=== PATIENT | male | born 1940 | race Caucasian/White ===

== ENCOUNTER 2018-09-30 13:48 | Outpatient (CLI) | payer MEDICARE, BC ==
--- NOTE | 2018-09-30 17:32 | CT ---
CT abdomen and pelvis with IV and oral contrast HISTORY: Colon mass. Pancreatic cyst. COMPARISON: 08/18/2018. FINDINGS: Mild atelectasis at the lung bases. Motion artifact obscures detail of the upper abdomen. C alcified granulomata of the spleen are consistent with healed granulomatous disease. Lobulated cyst at the pancreatic tail/body now measures 2.4 cm x 2.2 cm x 1.9 cm. Previously 2.5 cm x 2.5 cm x 2.2 cm. In the area of concern of the left colon on the previous study, no persistent thickening or mass are apparent. Scattered diverticula without adjacent inflammation. 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 IMPRESSION: No evidence of persistent left colon mass. No new abnormalities. Slight interval decrease in size of pancreatic cyst. Chronic-type findings are stable.
== END 2018-09-30 13:49 | disposition home or self-care (01) ==
LOC: SCSMRI 13:48 → SCSCT 13:49
PROVIDERS: ATTEND Physician Assistant Medical
DX: K85.00 Idiopathic acute pancreatitis without necrosis or infection (principal); R19.4 Change in bowel habit; R93.3 Abnormal findings on diagnostic imaging of other parts of digestive tract; K86.2 Cyst of pancreas
CPT/HCPCS: 74177; 82565

== ENCOUNTER 2019-02-22 19:04 | Emergency (ER) | payer MEDICARE, BC ==
[2019-02-22] MEDS ORDERED: Enoxaparin Sodium 80 MG/0.8 ML SYRINGE ONE (21:33)
[2019-02-22] MEDS ORDERED: Ketorolac Tromethamine 30 MG/ML VIAL ONE (21:33)
--- NOTE | 2019-02-22 22:05 | ULT ---
ULTRASOUND DOPPLER DUPLEX VENOUS BILATERAL LOWER EXTREMITIES: DATE: 02/22/2019 HISTORY: 78-year-old male with bilateral lower extremity pain and edema, and reportedly positive pulmonary thr omboembolism on outside CT. TECHNIQUE: Grayscale, color-flow, and spectral analysis, of the bilateral common femoral, profunda femoral, grea ter saphenous, femoral, popliteal, and posterior tibial, veins. FINDINGS: There is thrombus in the right common femoral vein extending to the junction with the greater sapheno us vein causing incomplete compressibility. There is blood flow around the clot. There is no DVT in the rest of the veins of the right lower extremity. There is no DVT in any of the veins of the left lower extremity. IMPRESSION: Positive for nonocclusive, acute deep venous thrombosis of the right common femoral vein.
== END 2019-02-22 22:55 | disposition home or self-care (01) ==
LOC: ERS 19:04
DX: I82.411 Acute embolism and thrombosis of right femoral vein (principal); I10 Essential (primary) hypertension; E78.00 Pure hypercholesterolemia, unspecified; Z79.899 Other long term (current) drug therapy; Z79.82 Long term (current) use of aspirin
CPT/HCPCS: 93970; 96372; J1650; J1885

== ENCOUNTER 2020-09-05 08:21 | Day surgery (SDC) | payer MEDICARE, BC ==
[2020-09-05] MEDS ORDERED: diphenhydrAMINE 25 MG CAP PO SCH (09:00)
[2020-09-05] MEDS ORDERED: Acetaminophen 500 MG TAB PO SCH (09:00)
[2020-09-05 15:39] VITALS: BP 117/58; TEMP 97.7
== END 2020-09-05 15:40 | disposition home or self-care (01) ==
LOC: ONC/OP 08:21
PROVIDERS: ATTEND Internal Medicine Hematology & Oncology
PROC: 30233N1 Transfusion of Nonautologous Red Blood Cells into Peripheral Vein, Percutaneous Approach (ICD-10-PCS; principal; 2020-09-05)
DX: D64.9 Anemia, unspecified (principal); D69.6 Thrombocytopenia, unspecified
CPT/HCPCS: 36430; 86850; 86900; 86901; P9016; Q0163

== ENCOUNTER 2020-09-21 10:55 | Day surgery (SDC) | payer MEDICARE, BC ==
[2020-09-21] MEDS ORDERED: diphenhydrAMINE 25 MG CAP ONE (11:18)
[2020-09-21] MEDS ORDERED: Acetaminophen 500 MG TAB ONE (11:18)
[2020-09-21 16:54] LABS: #Lymphocytes 1.1 thou/uL (1.20-3.40); #Monocytes 0.1 thou/uL (0.11-0.59); #Neutrophils 2.5 thou/uL (1.40-6.50); %Basophils 0.2 % (0.0-1.0); %Eosinophils 0.4 % (0.0-10.0); %Lymphocytes 28.8 % (21.0-51.0); %Monocytes 3.6 % (0.0-10.0); Mean Corpuscular HGB CONC 34.1 g/dL (32.0-36.0); Mean Corpuscular Hemoglobin 32.7 pg (27.0-31.0); Mean Corpuscular Volume 95.8 fL (78.0-98.0); Mean Platelet Volume 8.1 fL (7.4-10.4); Platelet Count 121 thou/uL (130-400); RBC Distribution Width 19.4 % (11.5-14.5); Red Blood Cell (RBC) Count 3.07 mill/uL (4.70-6.10); White Blood Cell (WBC) Count 3.7 thou/uL (4.8-10.8)
== END 2020-09-21 16:30 | disposition home or self-care (01) ==
LOC: SDC/OP 10:55
PROVIDERS: ATTEND Internal Medicine Hematology & Oncology
PROC: 30233N1 Transfusion of Nonautologous Red Blood Cells into Peripheral Vein, Percutaneous Approach (ICD-10-PCS; principal; 2020-09-21)
DX: D64.9 Anemia, unspecified (principal); D69.6 Thrombocytopenia, unspecified
CPT/HCPCS: 36430; 85025; 86850; 86900; 86901; 86920; P9016; 36415; 80053; 82248; 83615; 84100; 84550; Q0163

== ENCOUNTER 2020-10-02 08:31 | Day surgery (SDC) | payer MEDICARE, BC ==
[2020-10-02] MEDS ORDERED: Acetaminophen 500 MG TAB PO SCH (08:45)
[2020-10-02] MEDS ORDERED: diphenhydrAMINE 25 MG CAP PO SCH (08:45)
[2020-10-02] MEDS ORDERED: Sodium Chloride 0.9% 20 ML ONE (08:58)
[2020-10-02 13:14] VITALS: BP 116/63; TEMP 97.9
== END 2020-10-02 13:15 | disposition home or self-care (01) ==
LOC: ONC/OP 08:31
PROVIDERS: ATTEND Internal Medicine Hematology & Oncology
PROC: 30233N1 Transfusion of Nonautologous Red Blood Cells into Peripheral Vein, Percutaneous Approach (ICD-10-PCS; principal; 2020-10-02)
DX: D64.9 Anemia, unspecified (principal); D69.6 Thrombocytopenia, unspecified
CPT/HCPCS: 36430; 86850; 86900; 86901; P9016; Q0163

== ENCOUNTER 2020-11-23 13:19 | Day surgery (SDC) | payer MEDICARE, BC ==
[2020-11-23 16:36] VITALS: BMI 22.8
[2020-11-23] MEDS ORDERED: diphenhydrAMINE 25 MG CAP PO SCH (17:15)
[2020-11-23] MEDS ORDERED: Acetaminophen 500 MG TAB PO SCH (17:15)
[2020-11-24 02:03] VITALS: BP 145/69; TEMP 97.7
[2020-11-24 02:46] LABS: #Lymphocytes 1.2 thou/uL (1.20-3.40); #Monocytes 0.8 thou/uL (0.11-0.59); #Neutrophils 3.9 thou/uL (1.40-6.50); %Eosinophils 0.6 % (0.0-10.0); %Neutrophils 65.4 % (42.0-75.0); Mean Corpuscular HGB CONC 34.7 g/dL (32.0-36.0); Mean Corpuscular Hemoglobin 32.4 pg (27.0-31.0); Mean Corpuscular Volume 93.5 fL (78.0-98.0); Mean Platelet Volume 7.9 fL (7.4-10.4); Platelet Count 70 thou/uL (130-400); RBC Distribution Width 16.8 % (11.5-14.5); Red Blood Cell (RBC) Count 3.07 mill/uL (4.70-6.10); White Blood Cell (WBC) Count 5.9 thou/uL (4.8-10.8)
== END 2020-11-24 08:02 | disposition home or self-care (01) ==
LOC: SDC 13:19 → ONC 15:38 → SDC 11-24 08:02
PROVIDERS: ATTEND Internal Medicine Hematology & Oncology
PROC: 30233N1 Transfusion of Nonautologous Red Blood Cells into Peripheral Vein, Percutaneous Approach (ICD-10-PCS; principal; 2020-11-23)
PROC: 30233R1 Transfusion of Nonautologous Platelets into Peripheral Vein, Percutaneous Approach (ICD-10-PCS; 2020-11-23)
DX: D64.9 Anemia, unspecified (principal); D69.6 Thrombocytopenia, unspecified
CPT/HCPCS: 36430; 85025; 86850; 86900; 86901; 86920; P9016; P9035; 36415

== ENCOUNTER 2020-11-26 09:15 | Day surgery (SDC) | payer MEDICARE, BC ==
[2020-11-23 14:51] VITALS: BMI 23.8
[2020-11-26 09:10] LABS: INR-International Normal Ratio 1.1; Prothrombin Time 14.4 sec (12.0-14.7)
[2020-11-26 09:11] LABS: PTT 45.1 sec (22.9-36.1)
[2020-11-26] MEDS ORDERED: Sodium Bicarbonate 2.5 MEQ/5 ML VIAL ONE (10:34)
[2020-11-26] MEDS ORDERED: Midazolam HCl 2 mg/2 ml Vial ONE (10:34)
[2020-11-26] MEDS ORDERED: Fentanyl 100 MCG/2 ML VIAL ONE (10:34)
[2020-11-26 14:25] VITALS: BP 117/71; TEMP 97.8
== END 2020-11-26 13:10 | disposition home or self-care (01) ==
LOC: CT 09:15
PROVIDERS: ATTEND Internal Medicine Hematology & Oncology
PROC: 07DR3ZX Extraction of Iliac Bone Marrow, Percutaneous Approach, Diagnostic (ICD-10-PCS; principal; 2020-11-26)
DX: C61 Malignant neoplasm of prostate (principal); C79.52 Secondary malignant neoplasm of bone marrow; D69.6 Thrombocytopenia, unspecified; R29.810 Facial weakness; R41.82 Altered mental status, unspecified; I65.23 Occlusion and stenosis of bilateral carotid arteries; Z79.52 Long term (current) use of systemic steroids; Z79.899 Other long term (current) drug therapy
CPT/HCPCS: 20225; 36415; 77002; 85097; 85610; 85730; 88184; 88237; 88264; 88280; 88305; 88311; 88313; 88342; J2250; J3010

== ENCOUNTER 2020-12-20 12:02 | Inpatient (IN) | payer MEDICARE, BC ==
[2020-12-20 12:51] LABS: Hemoglobin 8.6 g/dL (14.0-18.0); Mean Platelet Volume 11.3 fL (7.4-10.4); Platelet Count 25 thou/uL (130-400); RBC Distribution Width 17.8 % (11.5-14.5); Red Blood Cell (RBC) Count 2.68 mill/uL (4.70-6.10); White Blood Cell (WBC) Count 12.7 thou/uL (4.8-10.8)
[2020-12-20 13:03] LABS: Anisocytosis SLIGHT = 6-15 cells (100X) (0-5/hpf); Band 7 % (5-11); Lymphocytes 10 % (21-51); MDiff Complete? YES; Monocytes 6 % (0-10); Neutrophil 76 % (42-75); Nucleated RBC 2 % (0); Platelet Morphology Comment Appears Decreased; Polychromasia SLIGHT = 2-3 cells (100X) (0-2/hpf)
[2020-12-20 13:10] LABS: ALT (SGPT) 45 U/L (8-55); AST (SGOT) 84 U/L (5-34); Albumin 3.4 g/dL (3.4-4.8); Alkaline Phosphatase 537 U/L (40-110); Anion Gap 13 mmol/L (10-20); BUN (Urea Nitrogen) 19 mg/dL (8.4-25.7); Bilirubin, Total 0.6 mg/dL (0.2-1.2); Calc. Creatinine Clearance 0 mL/min (70-130); Calcium 7.8 mg/dL (7.8-10.44); Carbon Dioxide 25 mmol/L (23-31); Chloride 100 mmol/L (98-107); Globulin 2.1 g/dL (2.4-3.5); Glucose 163 mg/dL (83-110); Potassium 3.9 mmol/L (3.5-5.1); Protein, Total 5.5 g/dL (5.8-8.1); Sodium 134 mmol/L (136-145)
[2020-12-20] MEDS ORDERED: hydrALAZINE 20 MG/ML VIAL SLOW IVP PRN (13:54)
[2020-12-20] MEDS ORDERED: Ondansetron PF 4 MG/2 ML Vial IVP PRN (13:54)
[2020-12-20] MEDS ORDERED: Promethazine HCl 25 MG/ML VIAL IM PRN (13:54)
[2020-12-20 14:48] LABS: INR-International Normal Ratio 1.1; PTT 36.4 sec (22.9-36.1); Prothrombin Time 14.2 sec (12.0-14.7)
[2020-12-20] MEDS ORDERED: HUMAN PROTHROMBIN COMPLX IV SCH (15:15)
[2020-12-20] MEDS ORDERED: ADMIXTURE FEE IV SCH (15:15)
[2020-12-20] MEDS: Acetaminophen 325 MG TAB PO SCH ×2 (18:07→21:20)
[2020-12-20 18:19] VITALS: BMI 22.1
[2020-12-20] MEDS ORDERED: Famotidine/PF 20 mg/2ml Vial SLOW IVP SCH (21:00)
[2020-12-20] MEDS: Senokot S 8.6-50 MG TAB PO SCH (21:21)
[2020-12-21] MEDS: Acetaminophen 325 MG TAB PO SCH ×3 (02:57→17:55)
[2020-12-21 05:25] LABS: INR-International Normal Ratio 1.1; PTT 33.5 sec (22.9-36.1)
[2020-12-21] MEDS ORDERED: Levothyroxine Sodium 50 MCG TAB PO SCH (06:00)
[2020-12-21 06:26] LABS: Anisocytosis SLIGHT = 6-15 cells (100X) (0-5/hpf); Band 23 % (5-11); Hemoglobin 6.6 g/dL (14.0-18.0); Lymphocytes 10 % (21-51); MDiff Complete? YES; Mean Corpuscular HGB CONC 33.3 g/dL (32.0-36.0); Mean Corpuscular Hemoglobin 31.1 pg (27.0-31.0); Mean Corpuscular Volume 93.5 fL (78.0-98.0); Mean Platelet Volume 7.8 fL (7.4-10.4); Metamyelocyte 3 % (0-0); Monocytes 4 % (0-10); Myelocyte 2 % (0-0); Neutrophil 58 % (42-75); Platelet Count 69 thou/uL (130-400); Platelet Morphology Comment Appears Decreased; Polychromasia SLIGHT = 2-3 cells (100X) (0-2/hpf); RBC Distribution Width 18.2 % (11.5-14.5); Red Blood Cell (RBC) Count 2.13 mill/uL (4.70-6.10); White Blood Cell (WBC) Count 9.5 thou/uL (4.8-10.8)
[2020-12-21] MEDS ORDERED: Rosuvastatin 10 MG TAB PO SCH (09:00)
[2020-12-21] MEDS ORDERED: Loratadine 10 MG TAB PO SCH (09:00)
[2020-12-21] MEDS ORDERED: Cholecalciferol 1,000 UNITS (25 MCG) TAB PO SCH (09:00)
[2020-12-21] MEDS ORDERED: Polyethylene Glycol 3350 17 GM Packet PO SCH (09:00)
[2020-12-21] MEDS: Senokot S 8.6-50 MG TAB PO SCH (10:03)
[2020-12-21 18:08] VITALS: BP 107/66; TEMP 98.2
== END 2020-12-21 16:55 | disposition home or self-care (01) | DRG 87 ==
LOC: ERS 12:02 → 3SE 13:59
PROVIDERS: ADMIT Surgery; ATTEND Surgery
PROC: 30233R1 Transfusion of Nonautologous Platelets into Peripheral Vein, Percutaneous Approach (ICD-10-PCS; principal; 2020-12-20)
PROC: 30233N1 Transfusion of Nonautologous Red Blood Cells into Peripheral Vein, Percutaneous Approach (ICD-10-PCS; 2020-12-21)
DX: S06.5X0A Traumatic subdural hemorrhage without loss of consciousness, initial encounter (principal); W18.30XA Fall on same level, unspecified, initial encounter; Z20.822 Contact with and (suspected) exposure to COVID-19; E78.5 Hyperlipidemia, unspecified; S06.350A Traumatic hemorrhage of left cerebrum without loss of consciousness, initial encounter; S06.340A Traumatic hemorrhage of right cerebrum without loss of consciousness, initial encounter; D69.6 Thrombocytopenia, unspecified; C61 Malignant neoplasm of prostate; E78.00 Pure hypercholesterolemia, unspecified; I10 Essential (primary) hypertension; J30.2 Other seasonal allergic rhinitis; D64.9 Anemia, unspecified; Z98.52 Vasectomy status; Z90.89 Acquired absence of other organs; Z79.82 Long term (current) use of aspirin; Z79.899 Other long term (current) drug therapy; Z79.01 Long term (current) use of anticoagulants
CPT/HCPCS: 36415; 36416; 36430; 70450; 72125; 80053; 85025; 85610; 85730; 86850; 86900; 86901; 93005; 96374; J7168; J8540; P9016; P9035

== ENCOUNTER 2021-01-03 08:57 | Day surgery (SDC) | payer MEDICARE, BC ==
[2021-01-03] MEDS ORDERED: Sodium Chloride 0.9% 20 ML ONE (09:14)
[2021-01-03] MEDS ORDERED: Acetaminophen 500 MG TAB PO SCH (09:30)
[2021-01-03] MEDS ORDERED: diphenhydrAMINE 25 MG CAP PO SCH (09:30)
[2021-01-03 14:24] VITALS: BP 106/54; TEMP 97.9
== END 2021-01-03 14:24 | disposition home or self-care (01) ==
LOC: ONC/OP 08:57
PROVIDERS: ATTEND Internal Medicine Hematology & Oncology
PROC: 30233N1 Transfusion of Nonautologous Red Blood Cells into Peripheral Vein, Percutaneous Approach (ICD-10-PCS; principal; 2021-01-03)
DX: D64.9 Anemia, unspecified (principal); D69.6 Thrombocytopenia, unspecified
CPT/HCPCS: 36430; 86850; 86900; 86901; P9016; Q0163

== ENCOUNTER 2021-01-18 15:57 | Observation (INO) | payer MEDICARE, BC ==
[2021-01-18 16:54] LABS: #Lymphocytes 1.6 thou/uL (1.20-3.40); #Monocytes 0.6 thou/uL (0.11-0.59); #Neutrophils 4.3 thou/uL (1.40-6.50); %Basophils 0.3 % (0.0-1.0); %Eosinophils 0.2 % (0.0-10.0); %Lymphocytes 24.7 % (21.0-51.0); %Monocytes 8.5 % (0.0-10.0); %Neutrophils 66.3 % (42.0-75.0); Hemoglobin 9.9 g/dL (14.0-18.0); Mean Corpuscular HGB CONC 32.8 g/dL (32.0-36.0); Mean Corpuscular Hemoglobin 32.3 pg (27.0-31.0); Mean Corpuscular Volume 98.6 fL (78.0-98.0); Mean Platelet Volume 9.6 fL (7.4-10.4); Platelet Count 42 thou/uL (130-400); RBC Distribution Width 20.3 % (11.5-14.5); Red Blood Cell (RBC) Count 3.06 mill/uL (4.70-6.10); White Blood Cell (WBC) Count 6.5 thou/uL (4.8-10.8)
[2021-01-18 17:07] LABS: ALT (SGPT) 67 U/L (8-55); AST (SGOT) 266 U/L (5-34); Albumin 2.6 g/dL (3.4-4.8); Alkaline Phosphatase 960 U/L (40-110); Anion Gap 16 mmol/L (10-20); BUN (Urea Nitrogen) 16 mg/dL (8.4-25.7); Bilirubin, Total 1.3 mg/dL (0.2-1.2); Calc. Creatinine Clearance 0 mL/min (70-130); Calcium 6.9 mg/dL (7.8-10.44); Carbon Dioxide 20 mmol/L (23-31); Chloride 98 mmol/L (98-107); Glucose 114 mg/dL (83-110); Lipase 8 U/L (8-78); Potassium 4.2 mmol/L (3.5-5.1); Protein, Total 4.6 g/dL (5.8-8.1); Sodium 130 mmol/L (136-145)
[2021-01-18 18:24] LABS: Bilirubin Negative (Negative); Blood, Urine Negative (Negative); Clarity Clear (Clear); Glucose, Urine (Dipstick) Normal (Negative); Ketone, Urine 10 mg/dL (Negative); Leukocyte 75 Leu/uL (Negative); Nitrite Negative (Negative); Protein, Urine (Dipstick) Negative (Neg-Trace); RBC/HPF 0-3 HPF (0-3); Specific Gravity, Urine 1.014 (1.002-1.036); Squamous Epithelial None Seen HPF (0-3); Urobilinogen Normal mg/dL (Less than 2); pH, Urine 5.5 (5.0-9.0)
[2021-01-18 18:25] LABS: Bacteria/HPF Rare-Few HPF (None Seen)
[2021-01-18 18:41] LABS: SARS-CoV-2 NAA Rapid Test Not Detected (NotDetected)
[2021-01-18 19:47] LABS: Lactic Acid 1.7 mmol/L (0.5-2.2)
[2021-01-18] MEDS ORDERED: Ondansetron ODT 4 MG TAB PO PRN (21:22)
[2021-01-18] MEDS ORDERED: Acetaminophen 650 MG Suppository PR PRN (21:22)
[2021-01-18] MEDS ORDERED: Ondansetron PF 4 MG/2 ML Vial IVP PRN (21:22)
[2021-01-19 00:21] VITALS: BMI 22.7
[2021-01-19] MEDS: Acetaminophen 325 MG TAB PO PRN ×2 (02:12→14:49)
[2021-01-19] MEDS ORDERED: FLU VACC QS2021-22(65YR UP)/PF 240 MCG/0.7 ML SYRINGE IM ONE (09:00)
[2021-01-19] MEDS: Enoxaparin Sodium 40 MG/0.4 ML SYRINGE SC SCH (09:41)
[2021-01-19 10:39] LABS: Hemoglobin 7.7 g/dL (14.0-18.0); Mean Corpuscular HGB CONC 33.4 g/dL (32.0-36.0); Mean Corpuscular Hemoglobin 33.1 pg (27.0-31.0); Mean Corpuscular Volume 99.2 fL (78.0-98.0); RBC Distribution Width 20.6 % (11.5-14.5); Red Blood Cell (RBC) Count 2.33 mill/uL (4.70-6.10); White Blood Cell (WBC) Count 6.8 thou/uL (4.8-10.8)
[2021-01-19 10:48] LABS: Anion Gap 12 mmol/L (10-20); BUN (Urea Nitrogen) 14 mg/dL (8.4-25.7); Calc. Creatinine Clearance 95 mL/min (70-130); Calcium 6.6 mg/dL (7.8-10.44); Carbon Dioxide 18 mmol/L (23-31); Chloride 101 mmol/L (98-107); Glucose 102 mg/dL (83-110); Sodium 127 mmol/L (136-145)
[2021-01-19 11:03] LABS: #Lymphocytes 1.8 thou/uL (1.20-3.40); #Monocytes 0.7 thou/uL (0.11-0.59); #Neutrophils 4.3 thou/uL (1.40-6.50); %Basophils 0.5 % (0.0-1.0); %Eosinophils 0.6 % (0.0-10.0); %Lymphocytes 26.2 % (21.0-51.0); %Monocytes 9.9 % (0.0-10.0); %Neutrophils 62.9 % (42.0-75.0); Anisocytosis SLIGHT = 6-15 cells (100X) (0-5/hpf); MDiff Complete? YES; Mean Platelet Volume 9.4 fL (7.4-10.4); Platelet Count 36 thou/uL (130-400); Platelet Morphology Comment Appears Decreased; Polychromasia SLIGHT = 2-3 cells (100X) (0-2/hpf); Schistocytes SLIGHT = 2-5 cells (100X) (0-1/hpf); Tear Drops SLIGHT = 2-5 cells (100X) (0-1/hpf)
[2021-01-19] MEDS ORDERED: Ondansetron ODT 4 MG TAB PO PRN (17:22)
[2021-01-19] MEDS: Sodium Chloride 0.9% 1,000 ML IV SCH (18:14)
[2021-01-19] MEDS: Acetaminophen/Codeine 30-300mg Tablet PO PRN (20:14)
[2021-01-20 04:18] LABS: #Lymphocytes 1.6 thou/uL (1.20-3.40); #Monocytes 0.7 thou/uL (0.11-0.59); #Neutrophils 4.7 thou/uL (1.40-6.50); %Basophils 0.5 % (0.0-1.0); %Eosinophils 0.5 % (0.0-10.0); %Lymphocytes 22.8 % (21.0-51.0); %Monocytes 9.6 % (0.0-10.0); %Neutrophils 66.6 % (42.0-75.0); Hemoglobin 7.8 g/dL (14.0-18.0); Mean Corpuscular HGB CONC 33.4 g/dL (32.0-36.0); Mean Corpuscular Hemoglobin 33.3 pg (27.0-31.0); Mean Corpuscular Volume 99.7 fL (78.0-98.0); Mean Platelet Volume 9.5 fL (7.4-10.4); Platelet Count 32 thou/uL (130-400); RBC Distribution Width 20.5 % (11.5-14.5); Red Blood Cell (RBC) Count 2.34 mill/uL (4.70-6.10)
[2021-01-20 04:28] LABS: ALT (SGPT) 66 U/L (8-55); AST (SGOT) 267 U/L (5-34); Albumin 2.2 g/dL (3.4-4.8); Alkaline Phosphatase 850 U/L (40-110); Anion Gap 15 mmol/L (10-20); BUN (Urea Nitrogen) 16 mg/dL (8.4-25.7); Bilirubin, Total 1.2 mg/dL (0.2-1.2); Calc. Creatinine Clearance 95 mL/min (70-130); Calcium 6.4 mg/dL (7.8-10.44); Carbon Dioxide 17 mmol/L (23-31); Chloride 101 mmol/L (98-107); Globulin 1.7 g/dL (2.4-3.5); Glucose 107 mg/dL (83-110); Potassium 4.3 mmol/L (3.5-5.1); Protein, Total 3.9 g/dL (5.8-8.1); Sodium 129 mmol/L (136-145)
[2021-01-20] MEDS: Acetaminophen/Codeine 30-300mg Tablet PO PRN (04:29)
[2021-01-20] MEDS ORDERED: Ketorolac Tromethamine 30 MG/ML VIAL IVP SCH (05:30)
[2021-01-20] MEDS ORDERED: Levothyroxine Sodium 50 MCG TAB PO SCH (06:00)
[2021-01-20] MEDS: Sodium Chloride 0.9% 1,000 ML IV SCH (07:03)
[2021-01-20] MEDS: Enoxaparin Sodium 40 MG/0.4 ML SYRINGE SC SCH (08:21)
[2021-01-20] MEDS ORDERED: Midodrine HCl 5 MG TAB PO SCH (09:00)
[2021-01-20] MEDS ORDERED: Loratadine 10 MG TAB PO SCH (09:00)
[2021-01-20] MEDS ORDERED: Cholecalciferol 1,000 UNITS (25 MCG) TAB PO SCH (09:00)
[2021-01-20 12:07] VITALS: BP 106/52; TEMP 98.3
== END 2021-01-20 14:01 | disposition home or self-care (01) ==
LOC: ERS 15:57 → ONC 19:28
PROVIDERS: ADMIT Student in an Organized Health Care Education/Training Program; ATTEND Hospitalist
DX: I95.1 Orthostatic hypotension (principal); E86.0 Dehydration; C61 Malignant neoplasm of prostate; C78.7 Secondary malignant neoplasm of liver and intrahepatic bile duct; C78.00 Secondary malignant neoplasm of unspecified lung; D63.0 Anemia in neoplastic disease; E87.1 Hypo-osmolality and hyponatremia; E83.51 Hypocalcemia; R74.01 Elevation of levels of liver transaminase levels; R09.02 Hypoxemia; I10 Essential (primary) hypertension; E78.5 Hyperlipidemia, unspecified; E78.00 Pure hypercholesterolemia, unspecified; Z79.899 Other long term (current) drug therapy; Z20.822 Contact with and (suspected) exposure to COVID-19
CPT/HCPCS: 51701; 70450; 71045; 80048; 80053 ×2; 83605; 83690; 83880; 84484; 85025 ×3; 87040; 93005; 96374; 99285; G0378 ×4; U0002; 36415; 81003; 81015; J1885; J7050; J8540